=== PATIENT | female | born 1960 | race Caucasian/White ===

== ENCOUNTER 2022-10-18 06:21 | Day surgery (SDC) | payer OTHER ==
[2022-10-18] MEDS ORDERED: Sodium Chloride 0.9% 1,000 ML IV SCH (06:45)
[2022-10-18] MEDS ORDERED: Propofol 200 MG/20 ML SDV ONE ×2 (07:07→07:57)
[2022-10-18] MEDS ORDERED: Midazolam 1 MG/ML 2 ML SDV ONE (07:08)
[2022-10-18] MEDS ORDERED: fentaNYL 50 MCG/ML SDV ONE (07:08)
== END 2022-10-18 09:33 | disposition home or self-care (01) ==
LOC: JP.SDS 06:21
PROVIDERS: ATTEND Surgery
DX: D12.5 Benign neoplasm of sigmoid colon (principal); F17.200 Nicotine dependence, unspecified, uncomplicated; Z79.899 Other long term (current) drug therapy
CPT/HCPCS: 45381; 45385; 88305; J2250; J2704; J3010; J7030